=== PATIENT | female | born 1970 | race American Indian/Alaskan Native ===

== ENCOUNTER 2017-07-23 10:58 | Emergency (ER) | payer MEDICAID, OTHER ==
[2017-07-23 11:16] VITALS: RESP 18; TEMP 98.3
--- NOTE | 2017-07-23 11:52 | ED PDOC ---
Arrival/HPI - General Chief Complaint: Abdominal Pain Time Seen by Provider: 07/23/17 11:00 Historian: Patient - History of Present Illness Narrative History of Present Illness (Text): Patient is a 46 year old female with no significant PMHx who presents complaining of 10/10, non-radiating epigastric tenderness that began about 9:30 this morning. Patient states the pain started suddenly. She describes the pain as "twisting and perforating", and stated that breathing exacerbated the pain. The pain is associate with mild nausea which has since resolved. She denies any fevers, chills, chest pain, SOB, back pain, diarrhea, constipation, blood in the stool, or recent changes in diet. Patient stated the pain resolved around 11:00 AM when she was put on the stretcher to come to the ED. All of her symptoms have since resolved. ROS POSITIVES: abd pain (resolved), mild nausea (resolved) NEGATIVES: charlie, chills, chest pain, SOB, back pain, diarrhea, constipation , blood in the stool, recent changes in diet PMHx: Denies PSHx: Denies Allergies: NKDA Social: Denies Tobacco, alcohol, or illicit drug use Fam Hx: Nasal [place] - Mother, [place]-Father Meds: Vitamin E and Biotin Symptom Onset: Sudden Symptom Course: Resolved Quality: Other (Twisting and perforating) Severity Level: 10 Activities at Onset: Rest Past Medical History - Provider Review Nursing Documentation Reviewed: Yes - Psychiatric Hx Psychophysiologic Disorder: No Hx Substance Use: No - Surgical History Other/Comment: EPISIOTOMY Family/Social History - Physician Review Nursing Documentation Reviewed: Yes Family/Social History: CAD/[place] (Father), Neoplasm/Cancer (Nasal CA (Mother)) Smoking Status: Never Smoked Hx Alcohol Use: No Hx Substance Use: No Allergies/Home Meds Allergies/Adverse Reactions: Allergies No Known Allergies Allergy (Verified 07/23/17 11:09) Review of Systems - Physician Review All systems were reviewed & negative as marked: Yes - Review of Systems Respiratory: Normal. absent: SOB Cardiovascular: Normal. absent: Chest Pain Physical Exam Vital Signs Reviewed: Yes Vital Signs Temp Pulse Resp BP Pulse Ox 07/23/17 13:39 72 18 138/83 98 07/23/17 11:15 98.3 F 87 18 145/89 100 Temperature: Afebrile Blood Pressure: Hypertensive Pulse: Regular Respiratory Rate: Normal Appearance: Positive for: Well-Appearing, Non-Toxic, Comfortable Pain Distress: None Mental Status: Positive for: Alert and Oriented X 3 - Systems Exam Head: Present: Atraumatic, Normocephalic Extroacular Muscles: Present: EOMI Conjunctiva: Present: Normal Mouth: Present: Moist Mucous Membranes Pharnyx: Present: Normal Nose (External): Present: Atraumatic Respiratory/Chest: Present: Clear to Auscultation. No: Accessory Muscle Use, Wheezes, Rales, Rhonchi Cardiovascular: Present: Regular Rate and Rhythm Abdomen: Present: Normal Bowel Sounds. No: Tenderness, Distention, Peritoneal Signs, Rebound, Guarding, McBurney's Point Tender, Rovsing's Sign Present, Mass/ Organomegaly Back: No: CVA Tenderness Upper Extremity: Present: Normal Inspection Lower Extremity: Present: Normal Inspection. No: Edema Neurological: Present: GCS=15, Speech Normal Skin: Present: Warm, Dry, Normal Color Psychiatric: Present: Alert, Oriented x 3, Normal Affect, Normal Mood Medical Decision Making ED Course and Treatment: 46 year old female with no significant PMHx presents with complaints of epigastric abdominal pain --Pain has resolved --CBC/CMP --Lipase/Amylase --UA --RUQ US --Reassess and Disposition. Reassessment: --CMP: Unremarkable --CBC: HgB 11.6, otherwise unremarkable --UA: patient did not urinate yet. Gall Bladder US Impression by Dr. Choudhary: -Mild hepatomegaly. Diffuse increased echogenicity in the liver may reflect hepatic steatosis however parenchymal infectious/ inflammatory etiologies cannot be entirely excluded. Clinical and laboratory correlation is advised. . -No cholelithiasis or biliary dilatation Dispo: Patient's symptoms have completely resolved. She is stable for discharge. We will advise patient to follow up with primary medical physician. - Lab Interpretations Lab Results: 07/23/17 11:50 07/23/17 11:50 Lab Results 07/23/17 11:50: Sodium 140, Potassium 4.3, Chloride 105, Carbon Dioxide 27, Anion Gap 12, BUN 14, Creatinine 0.7, Est GFR ( Amer) > 60, Est GFR (Non- Af Amer) > 60, Random Glucose 88, Calcium 9.2, Total Bilirubin 0.3, AST 39 H, ALT 26, Alkaline Phosphatase 58, Total Protein 8.0, Albumin 4.0, Globulin 4.0, Albumin/Globulin Ratio 1.0 L, Amylase 55, Lipase 43 07/23/17 11:50: WBC 8.0, RBC 4.06, Hgb 11.6 L, Hct 35.9 L, MCV 88.4, MCH 28.6, MCHC 32.3, RDW 13.7, Plt Count 325, MPV 8.7, Gran % 79.8 H, Lymph % (Auto) 12.6 L, [place] % (Auto) 5.8, Eos % (Auto) 1.4 L, Baso % (Auto) 0.4, Gran # 6.38, Lymph # 1.0 L, [place] # 0.5, Eos # 0.1, Baso # 0.03 I have reviewed the lab results: Yes - RAD Interpretation Radiology Orders: 07/23/17 11:42 GALLBLADDER & HEPATIC [US] Stat Bobbin Inspector: Radiologist Disposition/Present on Arrival - Present on Arrival Any Indicators Present on Arrival: No History of DVT/PE: No History of Uncontrolled Diabetes: No Urinary Catheter: No History of Decub. Ulcer: No History Surgical Site Infection Following: None - Disposition Have Diagnosis and Disposition been Completed?: No Diagnosis: Epigastric abdominal pain Disposition: HOME/ ROUTINE Disposition Time: 13:37 Patient Plan: Discharge Condition: GOOD Discharge Instructions (ExitCare): Epigastric Pain (ED) Additional Instructions: Please follow up with your primary physician Please return to ED if symptoms return or worsen. Prescriptions: Dicyclomine [Bentyl] 20 mg PO QID PRN #12 tab PRN Reason: Abdominal Pain Forms: [facility] [facility] (Slovenian)
[2017-07-23 12:08] LABS: BASO # 0.03 K/mm3 (0.0-2.0); BASO % 0.4 % (0.0-3.0); EOS # 0.1 (0.0-0.7); EOS % 1.4 % (1.5-5.0); GRAN # 6.38 (1.4-6.5); GRAN % 79.8 % (50.0-68.0); HEMATOCRIT 35.9 % (36.0-48.0); LYMPH % 12.6 % (22.0-35.0); MEAN CELL VOLUME 88.4 fl (80.0-105.0); MEAN CORPUSCULAR HEMOGLOBIN 28.6 pg (25.0-35.0); MEAN CORPUSCULAR HGB CONC 32.3 g/dl (31.0-37.0); MEAN PLATELET VOLUME 8.7 fl (7.0-11.0); MONO # 0.5 (0.1-0.6); MONO % 5.8 % (1.0-6.0); RED CELL DISTRIBUTION WIDTH 13.7 % (11.5-14.5)
[2017-07-23 12:15] LABS: ALKALINE PHOSPHATASE 58 U/L (38-126); ALT/SGPT 26 U/L (7-56); AMYLASE 55 U/L (35-125); AST/SGOT 39 U/L (14-36); BILIRUBIN,TOTAL 0.3 mg/dL (0.2-1.3); BLOOD UREA NITROGEN 14 mg/dL (7-21); CALCIUM 9.2 mg/dL (8.4-10.5); CARBON DIOXIDE 27 mmol/L (21-33); CHLORIDE 105 mmol/L (98-107); GFR AFRICAN-AMERICAN > 60; GLUCOSE,RANDOM 88 mg/dL (70-110); LIPASE 43 U/L (23-300); POTASSIUM 4.3 mmol/L (3.6-5.0); SODIUM 140 mmol/L (132-148)
--- NOTE | 2017-07-23 13:21 | US ---
HISTORY: Abdominal Pain COMPARISON: None. TECHNIQUE: Grayscale imaging was performed. FINDINGS: LIVER: Measures 18.7 cm in length. There is diffuse increased echogenicity of the liver parenchyma. No mass. No intrahepatic bile duct dilatation. GALLBLADDER: There are no gallstones, wall thickening or pericholecystic fluid. The sonographic Pastor's sign is negative. COMMON BILE DUCT: Measures 5.2 mm. No stones. No dilatation. PANCREAS: Unremarkable as visualized. No mass. No ductal dilatation. RIGHT KIDNEY: Measures 10.9 cm in length. Normal echogenicity. No calculus, mass, or hydronephrosis. AORTA: No aneurysmal dilatation. IVC: Unremarkable. OTHER FINDINGS: None . IMPRESSION: Mild hepatomegaly. Diffuse increased echogenicity in the liver may reflect hepatic steatosis however parenchymal infectious/ inflammatory etiologies cannot be entirely excluded. Clinical and laboratory correlation is advised. . No cholelithiasis or biliary dilatation.
[2017-07-23 13:40] VITALS: BP 138/83; PULSE 72; O2SAT 98
== END 2017-07-23 13:54 | disposition home or self-care (01) ==
LOC: ED 10:58
DX: R10.13 Epigastric pain (principal)